=== PATIENT | female | born 1950 | race Caucasian/White ===

== ENCOUNTER 2021-10-07 09:54 | Outpatient (CLI) | payer OTHER, SELFPAY | END 2021-10-07 09:55 | disposition home or self-care (01) | LOC: ANHAUDIO 09:55 | PROVIDERS: PCP Family Medicine; Visit Provider Family Medicine | DX: H93.12 Tinnitus, left ear (principal) | CPT/HCPCS: 92557; 92567 ==

== ENCOUNTER 2021-10-08 14:40 | Outpatient (CLI) | payer OTHER, SELFPAY ==
--- NOTE | ~2021-10-08 | MM_ITS ---
EXAMINATION: MM screening lisa BI w blake HISTORY: Screening mammogram TECHNIQUE: Craniocaudal and mediolateral oblique 3-D tomosynthesis images were obtained and synthetic 2-D images were generated. CAD analysis was submitted and interpreted. COMPARISON: No prior mammogram is available for comparison at this institution. BREAST PARENCHYMAL COMPOSITION: The breasts are almost entirely fatty. FINDINGS: There is no evidence of suspicious mass, calcification, or architectural distortion to sugg est malignancy in either breast. There has been no suspicious interval change. IMPRESSION: 1. No mammographic evidence of malignancy. 2. Recommend routine screening mammography in one year. BI-RADS Category 1: Negative Reviewed, dictated and finalized at location A.
--- NOTE | ~2021-10-08 | DEXA_ITS ---
Bone Density Report Name: JP PEARL Age: 70 Sex: Female Ethnicity: White Date of : 1950 Indication: postmenopausal; screening for osteoporosis; height loss; prior fracture; hysterectomy; Referring Provider: CARLA BEASLEY Study: Bone densitometry was performed. Exam Date: October 08, 2021 Accession number: [id number] Bone Density: Region BMD T-score Z-score Classification AP Spine(L1-L4) 1.079 0.3 2.4 Normal Femoral Neck (Left) 0.723 -1.1 0.7 Osteopenia Total Hip (Left) 0.893 -0.4 1.1 Normal Femoral Neck (Right) 0.775 -0.7 1.1 Normal Total Hip (Right) 0.863 -0.6 0.8 Normal Total Hip Mean 0.878 -0.5 1.0 Normal World Health Organization criteria for BMD impression classify patients as: Normal (T-score at or above -1.0), Osteopenia (T-score between -1.0 and -2.5), or Osteoporosis (T-score at or below -2.5). 10-year Fracture Risk(1): Major Osteoporotic Fracture 13% Hip Fracture 1.3% Reported Risk Factors: [place] (), Neck BMD=0.723, BMI=35.0, previous fracture (1) FRAX(R) Version 3.08. Fracture probability calculated for an untreated patient. Fracture probability may be lower if the patient has received treatment. Clinical Information Provided by Patient: Has had a low trauma fracture Has used the following medications: Vitamin D Has the following medical conditions: Hysterectomy Patient maximum height was 67.5 Menopause Age: 57 No regular weight bearing exercise Drinks caffeinated beverages Onset of menses at age 13 Number of children 3 Impression: The patient has low bone mass, based on the Left Femoral Neck T-score. The patient has an estimated ten-year risk of hip fracture of 1.3% and an estimated ten-year risk of major fracture of 13%, based on the WHO FRAX algorithm. The patient has risk factors, including: previous fracture. Discussion: BONE DENSITY IS LOW AT ONE OR MORE SKELETAL SITES. This patient's lowest T-score is low at one or more skeletal sites. It meets the World Health Organization's (WHO) criteria for ?low bone mass? (T-score between -1.0 and -2.5). The patient's 10-year risk of fracture as calculated by FRAX is less than the threshold where pharmacological therapy is recommended by the National Osteoporosis Foundation (NOF). However, all treatment decisions require clinical judgment and consideration of individual patient factors, including patient preferences, comorbidities, previous drug use, risk factors not captured in the FRAX model (e.g., frailty, falls, vitamin D deficiency, increased bone turnover, interval significant decline in bone density) and possible under or overestimation of fracture risk by FRAX. The patient should follow a healthful lifestyle (good nutrition with adequate calcium and vitamin D, and appropriate weight-bearin
== END 2021-10-08 14:41 | disposition home or self-care (01) ==
LOC: ANHIMG 14:44
PROVIDERS: PCP Family Medicine; Visit Provider Family Medicine
DX: Z12.31 Encounter for screening mammogram for malignant neoplasm of breast (principal); Z78.0 Asymptomatic menopausal state; R93.7 Abnormal findings on diagnostic imaging of other parts of musculoskeletal system; M85.852 Other specified disorders of bone density and structure, left thigh
CPT/HCPCS: 77063; 77067; 77080

== ENCOUNTER 2023-01-15 15:35 | Outpatient (CLI) | payer OTHER, SELFPAY ==
--- NOTE | ~2023-01-15 | MR_ITS ---
EXAMINATION: MR lower leg LT wo con DATE: 01/15/2023 16:42 INDICATION: Chronic worsening medial left calf swelling. TECHNIQUE: Magnetic resonance imaging (MRI) of the left lower leg was performed without intravenous c ontrast. Sequences included axial, sagittal and coronal T1-weighted FSE and fluid sensitive FSE STIR. The contralateral right lower leg is included on the coronal images. COMPARISON: None. FINDINGS: There is normal bone marrow signal throughout with no reactive edema, fracture or pathologic marrow r eplacing process. Normal and symmetric muscle bulk and signal in the bilateral lower legs. No abnorma l masses or fluid collections identified. Subcutaneous edema at the bilateral calves. IMPRESSION: 1. Relatively symmetric minimal subcutaneous edema at the bilateral calves. Otherwise unremarkable le ft lower leg MRI with no abnormal masses or fluid collections identified. Reviewed, dictated and finalized at location A. IMPRESSION: 1. Relatively symmetric minimal subcutaneous edema at the bilateral calves. Oth erwise unremarkable left lower leg MRI with no abnormal masses or fluid collect ions identified.
== END 2023-01-15 15:36 | disposition home or self-care (01) ==
LOC: ANHIMG 15:38
PROVIDERS: PCP Family Medicine; Visit Provider Family Medicine
DX: R22.42 Localized swelling, mass and lump, left lower limb (principal)
CPT/HCPCS: 73718

== ENCOUNTER 2023-03-04 13:17 | Outpatient (CLI) | payer OTHER, SELFPAY ==
--- NOTE | ~2023-03-04 | XR_ITS ---
EXAM: XR tibia fibula LT 2V DATE: 03/04/2023 13:45 HISTORY: Pain in medial lower leg w/MRI, edema, checking for metal . COMPARISON: None available. FINDINGS: Normal mineralization. No fracture or dislocation. No lytic or blastic lesion. Mild degene rative change in the left knee. No erosion or periosteal change. Soft tissues within normal limits. IMPRESSION: Unremarkable left tibia/fibular radiograph findings. No radiopaque foreign body. Reviewed, dictated and finalized at location K. HANDISING LEAD
== END 2023-03-04 13:18 | disposition home or self-care (01) ==
PROVIDERS: PCP Family Medicine; Visit Provider Family Medicine
DX: M79.662 Pain in left lower leg (principal)
CPT/HCPCS: 73590

== ENCOUNTER 2023-04-28 09:29 | Outpatient (CLI) | payer OTHER, SELFPAY ==
--- NOTE | ~2023-04-28 | MM_ITS ---
EXAMINATION: MM screening lisa BI w blake HISTORY: Screening mammogram TECHNIQUE: Craniocaudal and mediolateral oblique 3-D tomosynthesis images were obtained and synthetic 2-D images were generated. CAD analysis was submitted and interpreted. COMPARISON: 10/08/2021 BREAST PARENCHYMAL COMPOSITION: There are scattered areas of fibroglandular density. FINDINGS: No suspicious mass, calcification, or architectural distortion are identified in either cailin ast to suggest malignancy. There has been no suspicious interval change. IMPRESSION: 1. No mammographic evidence of malignancy. 2. Recommend routine screening mammography in one year. BI-RADS Category 1: Negative Reviewed, dictated and finalized at location A. 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
== END 2023-04-28 09:30 | disposition home or self-care (01) ==
LOC: ANHIMG 09:30
PROVIDERS: PCP Family Medicine; Visit Provider Family Medicine
DX: Z12.31 Encounter for screening mammogram for malignant neoplasm of breast (principal)
CPT/HCPCS: 77063; 77067

== ENCOUNTER 2024-04-03 08:12 | Outpatient (CLI) | payer OTHER, SELFPAY ==
--- NOTE | ~2024-04-03 | XR_ITS ---
EXAMINATION: XR lumbar spine 6V w bending DATE: 04/03/2024 08:37 INDICATION: TECHNIQUE: Anteroposterior, lateral in neutral, flexion and extension, and bilateral oblique views of the lumbar spine and cone-down AP and lateral views of the lumbosacral junction were obtained. COMPARISON: None. FINDINGS: There are hypoplastic riblets at what for purposes of this report will be designated T12. There are 5 more caudal nonrib-bearing lumbar segments with L5. Partially sacralized on the left. 6 degrees lumb ar levocurvature. 4 mm anterolisthesis L4 on L5 which remains unchanged with flexion and extension. V ertebral body heights are normal. Mild to moderate disc height loss at L4-L5 and mild disc height los s at L1-L2, L2 on L3 and L5-S1. No pars interarticularis defects. Severe facet osteoarthritis bilater ally at L4-L5 and L5-S1 and mild to moderate facet osteoarthritis and more cephalad lumbar spine. Mil d osteoarthritis at the bilateral sacroiliac joints. IMPRESSION: 1. Mild to moderate lower lumbar predominant spondylosis. Reviewed, dictated and finalized at location B. 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
--- OUTSIDE RECORDS SUMMARY | 2024-04-06 11:50 | XMS_ITS | Continuity of Care Document ---
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 Name Role Phone Mayco Long MD Unavailable Unavailable Allergies, Adverse Reactions, Alerts Substance Reaction Status Criticality No Known Allergies Active No Inform ation Medications Medication Instructions Dosage Effective Dates (start - stop) Status Comments Percocet 5 mg-325 mg tablet take 1 - 2 by oral route every 4 - 6 hours as needed 1-2 - Active Alex 7.5 mg-325 mg tablet take 1 - 2 Tablet by oral route every 4 - 6 hours as needed for pain 1-2 Tablet - Active Procedures Procedure Date Office/outpatient visit,karime almaraz 2018 Office/outpatient visit,est low 2017 Global/Postop followup visit Global/Postop followup visit X-ray exam humerus, minimum 2 views Global/Postop followup visit ORIF Prox Humerus Fx Office/outpatient visit,new, mod 2017 Dieter Sling With Waist Strap, Off The She lf Advance Directives Directive Yes / No Effective Date File Name No Information Encounters Encounter Description Practice Location Reason(s) For Visit Diagnoses Date Provider Providers Copied on Encounter Office/outpat ient visit,est, low [facility], [address], [place], [place], [id number], [place] tel:[phone] [facility] Right humerus (chief complaint) Displaced fracture of surgical neck of right humerus, sequela 0 9 Mercedes Mao. [address] [facility], [address] [facility], [place], [place], [id number] , [place]. tel:[phone] Referring Provider: Mayco Francisco, [address] [facility] [address], [place], [address] . tel:[phone] Office/outpat ient visit,est, low [facility], [address] [address], [place], [place], [id number], [place] tel:[phone] [facility] Right humerus (chief complaint) Displaced fracture of surgical neck of right humerus, sequela 8 Mercedes Mao. [address] [facility], [facility] [address], [place], [place], [id number] , [place]. tel:[phone] Referring Provider: Mayco Francisco, [address] [facility] [address] [facility], [place], [address] . tel:[phone] [facility], [address] [address], [place], [place], [id number], [place] tel:[phone] [facility] No Information 8 Mercedes Mao. [address] [facility], [facility] [address], [place], [place], [id number] , [place]. tel:[phone] [facility], [address] [address], [place], [place], [id number], [place] tel:[phone] [facility] Right humerus (chief complaint) Displaced fracture of surgical neck of right humerus, sequela 8 Mercedes Mao. [address] [facility], [facility] [address], [place], [place], [id number] , [place]. tel:[phone] [facility], [address], [id number], [place] tel:[phone] [facility] Right humerus (chief complaint) Displaced fracture of surgical neck of right humerus, initial encounter for closed fracture 8 Mercedes Mao. [address] [facility], [address], [place], [place], [id number] , [place]. tel:[phone] [facility], [address], [place], [place], [id number], [place] tel:[phone] [facility] [employer] [facility] Right humerus (chief complaint) Displaced fracture of surgical neck of right humerus, initial encounter for closed fracture 8 Mercedes Mao. [address] [facility], [address], [place], [place], [id number] , [place]. tel:[phone] Referring Provider: Mayco Francisco, [address] [facility] [address], [place], [address] . tel:[phone] [facility], [address] [address], [place], [place], [id number], [place] tel:[phone] [facility] No Information 8 Mercedesalex Mao. [address] [facility], [address], [place], [place], [id number] , [place]. tel:[phone] Referring Provider: Mayco Francisco, [address] [facility] [address], [place], [address] . tel:[phone] Office/outpat ient visit,new, [facility], [address] [address], [place], [place], [id number], [place] tel:[phone] [facility] Broken Shoulder (chief complaint) Displaced fracture of surgical neck of right humerus, initial encounter for closed fracture 8 Mercedesalex Mao. [address] [facility], [address], [place], [place], [id number] , [place]. tel:[phone] Referring Provider: Mayco Francisco, [address] [facility] [address], [place], [address] . tel:[phone] Family History Family Member Type Diagnosis Age At Onset Mother Problem (finding) Cancer, unknown Father Problem (finding) Heart Disease Payers Payer name Insurance type Covered alliance party ID Junior almaraz(s) Medicare [place] W[place] Part B [id number] [facility] [id number] Social History Type Description Quantity Date Captured Comments Alcohol Use Details Unknown Caffeine Use Details Unknown Tobacco Use Status Ex-smoker Smoking Status Former smoker Non-Smoking Tobacco Use Details : No Details Available : No Details Available Sex Female Vital Signs Date / Time: Height Weight BMI Pulse Rate Blood Pressure Temperature Respiratory Rate Body Surface Area Head Circumference Head Circ. Percentile Wt./Jc. Percentile BMI percentile Pulse Ox Inhaled Ox 9:39 AM 67.00 in 99.790 kg (220.00 lbs) 34.4 6 kg/m anupamaer (2) Chief Complaint And Reason For Visit From encounter dated '03/24/2018 09:40'. Right humerus (chief complaint). Description: Patient comes in today for follow up of her right humeral neck fracture Reason For Referral Reason For Referral No Information Plan Of Treatment Date Type Action Status Referral Ordered: X-ray exam humerus, minimum 2 views RT ordered Referral Ordered: CT scan Upper Extrem W/o Contrast RT shoulder Appointment date/timeframe: 10/01/2017 ordered History Of Present Illness Encounter Date Complaint History Of Prese nt Illness Right humerus Patient comes in today for follow up of her right humeral neck fracture Right humerus Patient comes in today for follow up of her right ORIF right humeral neck fracture Right humerus Patient comes in today for follow up of her ORIF right humerus fracture Right humerus Patient comes in today for follow up of her ORIF of her right humerus fracture Right humerus Patient comes in today for follow up of her ORIF right humerus fracture Broken Shoulder Patient comes in today for right humerus pain Functional Status Date Functional Assessmen t No Information Instructions Date Instruction Additional Infor mation No Information Assessments Type Assessment Date assessment Displaced fracture of surgical n titi of right humerus, sequela Patient Care Teams Name Effective Dates (start - stop) Status Members No Information
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
--- OUTSIDE RECORDS SUMMARY | 2024-04-06 11:50 | XMS_ITS | Referral Summary ---
Author Organization [facility] Address [address] [place] [address] Care Team Providers Care Bench Hand Name Role Phone Unavailable Primary Care Provider Unavailabl e Source Comments [facility],non-owned Affiliates and Associated Physician Practices is amultiple site organization consisting of ambulatory clinics and hospital sitesin [place], [place], [place] and [place]. This disclosure is being madepursuant to the Care Everywhere program and may not contain all information available regarding this patient. Last updated 17.[facility] [employer] Social History Tobacco Use Types Packs/Day Years Used Date Smoking Tobacco: Never Assessed Sex and Gender Information Value Date Recorded Sex Assigned at Not on file Gender Identity Not on file Sexual Orientation Not on file Plan of Treatment Not on file
--- OUTSIDE RECORDS SUMMARY | 2024-04-06 11:50 | XMS_ITS | Clinical Summary ---
Author Organization [facility] [employer] Address [address] [place] [address] Care Team Providers Care Puff Ironer Name Role Phone Unavailable Primary Care Provider Unavailabl e Source Comments [facility] [employer],non-owned Affiliates and Associated Physician Practices is amultiple site organization consisting of ambulatory clinics and hospital sitesin [place], [place], [place] and [place]. This disclosure is being madepursuant to the Care Everywhere program and may not contain all information available regarding this patient. Last updated 17.[facility] [employer] Social History Tobacco Use Types Packs/Day Years Used Date Smoking Tobacco: Never Assessed Sex and Gender Information Value Date Recorded Sex Assigned at Not on file Gender Identity Not on file Sexual Orientation Not on file Plan of Treatment Health Maintenance Due Date Last Done Comments BONE DENSITY TESTING 1950 COLOGUARD (AGES 45-75) - COL ON CA SCREENING 1950 COLON MONITORING 1950 COLONOSCOPY - COLON CA SCREENING 1950 CT COLONOGRAPHY - COLON CA SCREENING 1950 Colorectal Cancer Screening 1950 FIT - COLON CA SCREENING 1950 FLEX SIG - COLON CA SCREENING 1950 LIPID TESTING 1950 MAMMOGRAM 1950 HEPATITIS C SCREENING 10/13/1969 DTAP/TDAP/TD VACCINES (1 - Tdap) 10/17/1970 PNEUMOCOCCAL VACCINE 50+ (1 of 1 - PCV) 10/17/2001 ZOSTER VACCINE (1 of 2) 10/17/2001 COVID-19 VACCINE ( - 2023-2 5 season) 2023 INFLUENZA VACCINE (#1) 2023 DEPRESSION SCREENING 03/15/2024 MEDICARE AWV ? CALENDAR YEAR 2024 Respiratory Syncytial Virus (RSV) Vaccine Pt: or over 60 yrs (1 - 1-dose 75+ series) 10/17/2026 HEPATITIS B VACCINE Aged Out No longe r eligible based on patient's age to complete this topic HIB VACCINE Aged Out No longer eligi ble based on patient's age to complete this topic HPV VACCINE Aged Out No longer eligi ble based on patient's age to complete this topic MENINGOCOCCAL (Group B) VACCINE Aged Out No longer eligible based on patient's age to complete this topic MENINGOCOCCAL VACCINE Aged Out No madelin joselin eligible based on patient's age to complete this topic
--- OUTSIDE RECORDS SUMMARY | 2024-04-06 11:50 | XMS_ITS | Patient Health Summary ---
Author Organization [facility] Address [address] [place] [address] Care Team Providers Care Base Cloth Inspector Name Role Phone Unavailable Primary Care Provider Unavailabl e Note from [facility],non-owned Affiliates and Associated Physician Practices is amultiple site organization consisting of ambulatory clinics and hospital sitesin [place], [place], [place] and [place]. This disclosure is being madepursuant to the Care Everywhere program and may not contain all information available regarding this patient. Last updated 17.[facility] Social History Tobacco Use Types Packs/Day Years Used Date Smoking Tobacco: Never Assessed Sex and Gender Information Value Date Recorded Sex Assigned at Not on file Gender Identity Not on file Sexual Orientation Not on file Procedures * DERMATOPATHOLOGY(Performed 04/08/2023) Performed for Neoplasm of uncertain behavior of skin, Other disturbances of skin sensation Results * DERMATOPATHOLOGY (04/08/2023 3:33 AM DIRECTOR OF ARCHITECTURE) Case Report Dermatopathology Report ? Case: [id number] ? Authorizing Provider: ??Ninfa Cee MD ?Collected: ? 04/08/2023 03:33 AM ? Ordering Location: ? [facility] ? Received: ?04/10/2023 10:07 AM ? Pathologist: ? Jesenia Ramirez MD ? Specimen: ?Skin, left forehead ? 4 2:07 PM [facility] [[email or web address] DERMATOPATHOLOGY LABORATORY Final Diagnosis Specimen A. 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 The specimen consists of a(2) pieces of skin measuring 11x5x4, 03u65g8. The specimen is serially sectioned and a group sales representative section is submitted in cassette 1. Jar 1. 4 2:07 PM [facility] [[email or web address]] DERMATOPATHOLOGY LABORATORY Microscopic Description Specimen A. SKIN, left forehead: There are typical adipocytes with minimal fibrous trabeculae. 4 2:07 PM [facility] [[email or web address]] DERMATOPATHOLOGY LABORATORY Disclaimer An external and internal positive and negative controls are appropriate for the histochemical, immunohistochemical and immunofluorescence stain(s) in this case (if any), except where stated explicitly. The performance characteristics of the stain(s) cited in this report were developed and its performance characteristic determined by the Dermatopathology Laboratory at [facility], directed by Dr. Eric Pelaez. These tests need not be, and therefore are not, approved by the [place] Food and Drug Administration. The tests are used for clinical purposes. Billing Codes Specimen Charges Stain Charges 33721 1 4 2:07 PM [facility] [[email or web address]] DERMATOPATHOLOGY LABORATORY Embedded Images 4 2:07 PM [facility] [[email or web address]] DERMATOPATHOLOGY LABORATORY Pathology/Cytolo gy TISSUE SPECIMEN FROM SKIN / Unknown 04/08/2023 3:33 AM DIRECTOR OF ARCHITECTURE 04/10/2023 10:07 AM DIRECTOR OF ARCHITECTURE Ninfa Cee MD LAB - PATHOLOGY/CYTO LOGY ORDERABLES DERMATOPATHOLOGY LABORATORY [facility] - Department of Dermatology [facility] [address] [place] [address], [address] [phone]
--- OUTSIDE RECORDS SUMMARY | 2024-04-06 11:50 | XMS_ITS | Encounter Summary ---
Author Organization [facility] Address [address] [place] [address] Care Team Providers Care Software Program Manager Name Role Phone Unavailable Primary Care Provider Unavailabl e Encounter Details Date Type Department Care Team (Late st Contact Info) Description 04/08/2023 Lab Requisition [facility] - [facility] [address] [place] [address] Ninfa Cee MD [address] [place] [address] [place] [id number] Neoplasm of uncertain behavior of skin; Other disturbances of skin sensation Social History Tobacco Use Types Packs/Day Years Used Date Smoking Tobacco: Never Assessed Sex and Gender Information Value Date Recorded Sex Assigned at Not on file Gender Identity Not on file Sexual Orientation Not on file documented as of this encounter Plan of Treatment Not on file documented as of this encounter Procedures Procedure Name Priority Date/Time Associated Diagnosis Comments DERMATOPATHOLOGY Routine 04/08/2023 3:33 AM [employer] WORK[employer] Neoplasm of uncertain behavior of skin Other disturbances of skin sensation documented in this encounter Results * DERMATOPATHOLOGY (04/08/2023 3:33 AM RESEARCH WORK[employer]) Case Report Dermatopathology Report ? Case: [id number] ? Authorizing Provider: ??Ninfa Cee MD ?Collected: ? 04/08/2023 03:33 AM ? Ordering Location: ? [facility] ? Received: ?04/10/2023 10:07 AM ? Pathologist: ? Jesenia Ramirez MD ? Specimen: ?Skin, left forehead ? 4 2:07 PM [facility] DERMATOPATHOLOGY LABORATORY Final Diagnosis Specimen A. 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 The specimen consists of a(2) pieces of skin measuring 11x5x4, 33h44h3. The specimen is serially sectioned and a public health representative section is submitted in cassette 1. Jar 1. 4 2:07 PM [facility] DERMATOPATHOLOGY LABORATORY Microscopic Description Specimen A. SKIN, left forehead: There are typical adipocytes with minimal fibrous trabeculae. 4 2:07 PM [facility] DERMATOPATHOLOGY LABORATORY Disclaimer An external and internal positive and negative controls are appropriate for the histochemical, immunohistochemical and immunofluorescence stain(s) in this case (if any), except where stated explicitly. The performance characteristics of the stain(s) cited in this report were developed and its performance characteristic determined by the Dermatopathology Laboratory at [facility], directed by Dr. Eric Pelaez. These tests need not be, and therefore are not, approved by the [place] Food and Drug Administration. The tests are used for clinical purposes. Billing Codes Specimen Charges Stain Charges 35713 1 4 2:07 PM [employer] DERMATOPATHOLOGY LABORATORY Embedded Images 4 2:07 PM [employer] DERMATOPATHOLOGY LABORATORY Pathology/Cytolo gy TISSUE SPECIMEN FROM SKIN / Unknown 04/08/2023 3:33 AM RESEARCH WORKER KITCHEN 04/10/2023 10:07 AM [employer] WORK[employer] Ninfa Cee MD LAB - PATHOLOGY/CYTO LOGY ORDERABLES DERMATOPATHOLOGY LABORATORY [facility] - Department of Dermatology [facility] Medicine [address] [place] [address], [address] [phone] documented in this encounter Visit Diagnoses Diagnosis Neoplasm of uncertain behavior of skin Other disturbances of skin sensation documented in this encounter
--- OUTSIDE RECORDS SUMMARY | 2024-04-06 11:51 | XMS_ITS | Referral Summary ---
Author Organization [facility] [place] Address [address] [place] [address] Care Team Providers Care Generalist Name Role Phone Moe Morales NP, Neville Zurita Unavailable [phone] April Ramirez PT Unavailable Unavailable Edwar Madrid OT Unavailable Unavailable Ashlee Hand INSURANCE HEALTHCARE CONSULTANT Unavailable Unavaila Mayco Giles MD Unavailable [phone] Unknown, Notinfile Primary Care Provider Unavail able Allergies No known active allergies Medications cholecalciferol (VITAMIN D-3) 5,000 unit tablet Take 5,000 Units by mouth daily. Active clindamycin (CLEOCIN) 300 mg capsule Take 1 capsule (300 mg total) by mouth 4 (four) times a day 40 capsule 1 Active traZODone (DESYREL) 50 mg tablet Take 100 mg by mouth nightly 1 Active chlorthalidone 25 mg tablet Take 25 mg by mouth daily as needed (swelling) 1 Active famotidine (PEPCID) 20 mg tablet Take 20 mg by mouth 2 (two) times a day as needed for indigestion or heartburn Active HYDROcodone-jarret taminophen (NORCO) 5-325 mg per tabletIndicatio ns:Pain Take 1-2 tablets by mouth every 8 (eight) hours as needed for pain 12 tablet 1 Active fluvoxaMINE (LUVOX) 100 mg tabletIndicatio ns:COVID-19 Take 1 tablet (100 mg total) by mouth 2 (two) times a day for 10 days 20 tablet 1 Active Active Problems Problem Noted Date Diagnosed Date Abscess of left upper extremity 10/24/2020 Abnormal kidney function 10/22/2020 Adenomatous polyp of colon 10/22/2020 Class 1 obesity without seri ous comorbidity with body mass index (BMI) of 33.0 to 33.9 in adult 10/22/2020 Assessment & Plan (10/23/2020 3:07 PM CDT): Weight loss encouraged; continue to provide education and ongoing support. Encounter for long-term (current) use of other m edications 10/22/2020 Medicare annual wellness visit, subsequent 10/22 Hx of pulmonary embolus 10/22/2020 Pure hypercholesterolemia 10/22/2020 MRSA infection 10/22/2020 Assessment & Plan (10/23/2020 3:09 PM CDT): ER charts reviewed; abx is appropriate. Patient is currently afebrile and reports the erythema is improving. The abscess is open and draining. Will send patient for labs; CBC and CMP. Arranged for patient to see general surgery on . Further plans pending review of results; outpatient vs inpatient management. Patient verbalized understanding to this plan. Body mass index (BMI) 31.0-31.9, adult 0 VTE (venous thromboembolism) 04/14/2018 Assessment & Plan (04/14/2018 2:50 PM BUSINESS BANKER): Gradually improving. Echocardiogram from 11/2017 is very reassuring IVC filter has been removed Recs: 1) Ok to stop anticoagulation -- risk of recurrence off anticoagulation in the setting of provoked PE discussed with patient. 2) Gradually increase aerobic exercise Aftercare following surgery 11/12/2017 Elevated troponin 10/06/2017 Acute respiratory failure 10/06/2017 Acute saddle pulmonary embolism with acute cor p ulmonale 10/06/2017 Assessment & Plan (12/01/2017 2:43 PM CDT): Gradually improving. Recs: 1) Continue eliquis 5 mg BID 2) Check echocardiogram in Mar 2018 3) If the echo is ok, will likely discontinue anticoagulation 4) Remove IVC filter around 2017 5) Gradually increase aerobic exercise Sweating increase 10/05/2017 Atypical chest pain 11/06/2015 Secondary hypertension 11/06/2015 Immunizations Name Administration Dates Next Due Influenza, Unspecified 12/14/2019,12/13/2018 Pneumococcal Conjugate PCV 13 12/13/2016 Social History Tobacco Use Types Packs/Day Years Used Date Smoking Tobacco: Former Cigarettes Q uit: 1982 Smokeless Tobacco: Never Alcohol Use Standard Drinks/Week Comments No 0 (1 standard drink = 0.6 oz pur e alcohol) AUDIT-C Answer Date Recorded Q1: How often do you have a drink containing alc ohol? Never 10/25/2020 Average Number of Drinks Not on file 021 Frequency of Binge Drinking Not on file 10/13 PHQ-2 Answer Date Recorded PHQ-2 Total Score (If total score is 3 or more points, staff should administer the PHQ-9) 2 10/22/2020 Comments No Sex and Gender Information Value Date Recorded Sex Assigned at Not on file Legal Sex Female 3:12 PM CDT Gender Identity Female 08/28/2018 10:28 AM CDT Sexual Orientation Not on file Last Filed Vital Signs Vital Sign Reading Time Taken Comments Blood Pressure 155/90 12/13/2020 9:44 AM CDT Pulse 86 12/13/2020 9:44 AM CDT Temperature 36.4 ??C (97.5 ??F) 12/13/2020 9:44 AM CD T Respiratory Rate 18 12/13/2020 9:44 AM CDT Oxygen Saturation 95% 12/13/2020 9:44 AM CDT Inhaled Oxygen Concentration - - Weight 95.3 kg (210 lb) 12/13/2020 9:44 AM CDT Height 172.7 cm (5' 8 ) 12/02/2020 1:54 PM CDT Body Mass Index 31.93 12/02/2020 1:54 PM CDT Plan of Treatment Not on file Medical Devices Implanted Type Area Mining Manager Device Identifier Shelf Expiration Date Model / Serial / Lot Price [employer] Pc-[id number] Tiara-Guard 4x4cm Patch Cardiovascular Bovine Pericardial - [id number] - [id number] Implanted:Qty: 1 on 10/06/2017 by Kelby Moore MD at [facility] 09/28/2021 PC-0404N / [id number] / [id number] Description:Tiara- Guard [employer] Ar-7213 Fiberwire 38in 48mm Braid Ties Multistrand Lower Knot Profile 5 - [id number] Implanted:Qty: 2 on 10/05/2017 by Mayco Long MD at [facility] Right: Humerus [employer] 11/12/2021 AR-7213 / / [id number] Screw Bone 3.5mm 30mm Sutureplate Ti Loprfl Shldr Terrence - [id number] Implanted:Qty: 1 on 10/05/2017 by Mayco Long MD at [facility] Right: Humerus [employer] AR-17004P L / / [employer] Ar-[id number] 3.5mm 28mm Shoulder Cortical Screw Bone Titanium Sutureplate - [id number] Implanted:Qty: 1 on 10/05/2017 by Mayco Long MD at [facility] Right: Humerus [employer] AR-90139P L / / [id number] Screw Bone Sutureplate Titanium Low Profile L38 Mm Od4 Mm Shoulder Cancellous Lock Arthroplasty - [id number] Implanted:Qty: 2 on 10/05/2017 by Mayco Long MD at [facility] Right: Humerus [employer] AR-15149 / / [id number] 3 [employer] Ar-57347 Sutureplate 4mm 34mm Lock Shoulder Cancellous Low Profile Screw - [id number] Implanted:Qty: 1 on 10/05/2017 by Mayco Long MD at [facility] Right: Humerus [employer] AR-82558 / / [id number] 3 [employer] Ar-18002 Sutureplate 3.5mm 26mm Lock Shoulder Cortical Low Profile Screw - [id number] Implanted:Qty: 1 on 10/05/2017 by Mayco Long MD at [facility] Right: Humerus [employer] AR-71702 / / [id number] [employer] Ar-05521 Sutureplate 5 Hole Humerus Plate Bone Sterile - [id number] Implanted:Qty: 1 on 10/05/2017 by Mayco Long MD at [facility] Right: Humerus [employer] AR-43036 / / [id number] Screw Bone 3.5mm 30mm Sutureplate Ti Loprfl Shldr Terrence - [id number] Implanted:Qty: 1 on 10/05/2017 by Mayco Long MD at [facility] Right: Humerus [employer] AR-92200A L / / [employer] Ar-29653 4mm 40mm Lock Shoulder Cancellous Screw Bone Titanium Sutureplate - [id number] Implanted:Qty: 1 on 10/05/2017 by Mayco Long MD at [facility] Right: Humerus [employer] AR-16511 / / [id number] 3 [employer] Ar-49381 4mm 44mm Lock Shoulder Cancellous Screw Bone Titanium Sutureplate - [id number] Implanted:Qty: 1 on 10/05/2017 by Mayco Long MD at [facility] Right: Humerus [employer] AR-23245 / / [id number] 3 [employer] Ar-14925 Sutureplate 4mm 36mm Lock Shoulder Cancellous Low Profile Screw - [id number] Implanted:Qty: 1 on 10/05/2017 by Mayco Long MD at [facility] Right: Humerus [employer] AR-54988 / / [id number] Screw Bone Sutureplate Titanium Low Profile L38 Mm Od4 Mm Shoulder Cancellous Lock Arthroplasty - [id number] Implanted:Qty: 1 on 10/05/2017 by Mayco Long MD at [facility] Right: Humerus [employer] AR-52522 / / [id number] [employer] [id number] Celect Navalign Delivery Uniset Filter Embolization [place] - [id number] Implanted:Qty: 1 on 10/07/2017 by Freddy Winn MD at [facility] [employer] [id number] / / Explanted Type Area Mining Manager Device Identifier Shelf Expiration Date Model / Serial / Lot [employer] Ar-84405 Tali Sutureplate 1.6mm 15cm Wire Fixation Nonsterile - [id number] Explanted:Qty: 2 on 10/05/2017 at [facility] Right: Humerus [employer] AR-43120 / / Wire Fxatn 15cm 1.6mm Sutureplate Ball Nonstrl - [id number] Explanted:Qty: 1 on 10/05/2017 at [facility] Right: Humerus [employer] AR-29804V / / Insurance MEDICARE [facility] MEDICARE AAR Advance Directives For more information, please contact: [phone] * Full Code (Latest Code Status on File) Date Activated Date Inactivated Comments 10/11/2017 5:34 PM 10/22/2017 1:56 PM * Full Code Date Activated Date Inactivated Comments 10/06/2017 4:42 PM 10/11/2017 4:33 PM * Full Code Date Activated Date Inactivated Comments 10/05/2017 9:53 PM 10/06/2017 4:42 PM Care Teams Generalist Relationship Specialty Start Date End Date Unknown, Notinfile PCP - General 08/01/21 Neville Rosa Jr., CHILD WELFARE CASEWORKER [address] [place] [address] Nurse Practitioner Nurse Practitioner 10/25/17 April Ramirez, PT Physical Therapist Physical Therapy 10/26/17 Edwar Madrid, OT Occupational Therapist Occupational Therapy 10/26/17 Ashlee Hand, INSURANCE HEALTHCARE CONSULTANT Physical Therapist Physical Therapy 10/28/17 Mayco Long MD [address] [place] [address] Consulting Physician Orthopedic Surgery 11/04/17
--- OUTSIDE RECORDS SUMMARY | 2024-04-06 11:51 | XMS_ITS | Clinical Summary ---
Author Organization [facility] [place] Address [address] [place] [address] Care Team Providers Care Sports Medicine Trainer Name Role Phone Moe Morales NP, Neville Zurita Unavailable [phone] April Ramirez PT Unavailable Unavailable Edwar Madrid OT Unavailable Unavailable Ashlee Hand VEST BACKER Unavailable Unavaila Mayco Giles MD Unavailable Unknown, Notinfile Primary Care Provider Unavail able [...] 04/14/2018 Assessment & Plan (04/14/2018 2:50 PM SOFTWARE RELEASE MANAGER): Gradually improving. Echocardiogram from 11/2017 is very [...] Unspecified 12/14/2019,12/13/2018 Pneumococcal Conjugate PCV 13 12/13/2016 Surgical History Surgery Date Site/Laterality Comments HYSTERECTOMY BLADDER SUSPENSION TUBAL LIGATION BARTHOLIN GLAND CYST EXCISION TONSILLECTOMY PULMONARY EMBOLISM SURGERY 10/06/2017 Bilateral Pulmonary embolectomy ORIF HUMERAL CONDYLE FRACTURE 10/05/2017 Right COLONOSCOPY W/ POLYPECTOMY 08/13/2020 - 09/11/2020 benign PATENT FORAMEN OVALE CLOSURE 10/06/2017 Removal of clot in transit VENA CAVA FILTER PLACEMENT 10/07/2017 IVC FILTER RETRIEVAL 01/25/2018 Medical History Medical History Date Comments MRSA infection Hypertension resolved after w eight loss Proximal humerus fracture Right Acute saddle pulmonary embol ism with acute cor pulmonale (HCC) 10/06/2017 GERD (gastroesophageal reflux disease) with spicy foods - takes Famotidine prn Intracardiac thrombus 10/06/2017 Cardiogenic shock (HCC) 10/06/2017 Cardiac arrest (HCC) 10/06/2017 Family History Medical History Relation Name Comments Heart disease Father Cancer Mother Cancer Paternal Grandmother Relation Name Status Comments Father Maternal Grandmother Mother Paternal Grandmother Social History Tobacco Use Types Packs/Day Years [...] AM CDT Sexual Orientation Not on file Obstetrics History Last Filed Vital Signs Vital Sign Reading [...] on file Medical Devices Implanted Type Area Body Art Technician Device Identifier Shelf Expiration Date Model / Serial / Lot [employer]c-0404n Tiara-Guard 4x4cm Patch Cardiovascular Bovine Pericardial - [id number] - [id number] Implanted:Qty: 1 on 10/06/2017 by Kelby Moore MD at [facility] [employer] 09/28/2021 PC-0404N / [id number] / [id number] Description:Tiara- Guard [employer] Ar-7213 Fiberwire 38in 48mm Braid Ties Multistrand Lower Knot Profile 5 - [id number] Implanted:Qty: 2 on 10/05/2017 by Mayco Long MD at [facility] Right: Humerus [employer] 11/12/2021 AR-7213 / / [id number] Screw Bone 3.5mm 30mm Sutureplate Ti Loprfl Shldr Terrence - [id number] Implanted:Qty: 1 on 10/05/2017 by Mayco Long MD at [facility] Right: Humerus [employer] AR-29631N L / / [employer] Ar-16091tw 3.5mm 28mm Shoulder Cortical Screw Bone Titanium Sutureplate - [id number] Implanted:Qty: 1 on 10/05/2017 by Mayco Long MD at [facility] Right: Humerus [employer] AR-28628D L / / [id number] Screw Bone Sutureplate Titanium Low Profile L38 Mm Od4 Mm Shoulder Cancellous Lock Arthroplasty - [id number] Implanted:Qty: 2 on 10/05/2017 by Mayco Long MD at [facility] Right: Humerus [employer] AR-65491 / / [id number] [employer] Ar-87401 Sutureplate 4mm 34mm Lock Shoulder Cancellous Low Profile Screw - [id number] Implanted:Qty: 1 on 10/05/2017 by Mayco Long MD at [facility] Right: Humerus [employer] AR-08169 / / [id number] 3 [employer] Ar-74038 Sutureplate 3.5mm 26mm Lock Shoulder Cortical Low Profile Screw - [id number] Implanted:Qty: 1 on 10/05/2017 by Mayco Long MD at [facility] Right: Humerus [employer] AR-46073 / / [id number] [employer] Ar-32331 Sutureplate 5 Hole Humerus Plate Bone Sterile - [id number] Implanted:Qty: 1 on 10/05/2017 by Mayco Long MD at [facility] Right: Humerus [employer] AR-42246 / / [id number] Screw Bone 3.5mm 30mm Sutureplate Ti Loprfl Shldr Terrence - [id number] Implanted:Qty: 1 on 10/05/2017 by Mayco Long MD at [facility] Right: Humerus [employer] AR-45648U L / / [employer] Ar-73411 4mm 40mm Lock Shoulder Cancellous Screw Bone Titanium Sutureplate - [id number] Implanted:Qty: 1 on 10/05/2017 by Mayco Long MD at [facility] Right: Humerus [employer] AR-23734 / / [id number] 3 [employer] Ar-26126 4mm 44mm Lock Shoulder Cancellous Screw Bone Titanium Sutureplate - [id number] Implanted:Qty: 1 on 10/05/2017 by Mayco Long MD at [facility] Right: Humerus [employer] AR-18526 / / [id number] [employer] Ar-18858 Sutureplate 4mm 36mm Lock Shoulder Cancellous Low Profile Screw - [id number] Implanted:Qty: 1 on 10/05/2017 by Mayco Long MD at [facility] Right: Humerus [employer] AR-63504 / / [id number] Screw Bone Sutureplate Titanium Low Profile L38 Mm Od4 Mm Shoulder Cancellous Lock Arthroplasty - [id number] Implanted:Qty: 1 on 10/05/2017 by Mayco Long MD at [facility] Right: Humerus [employer] AR-99494 / / [id number] [employer] [id number] Celect Navalign Delivery Uniset Filter Embolization [place] - [id number] Implanted:Qty: 1 on 10/07/2017 by Freddy Winn MD at [facility] [employer] [id number] / / Explanted Type Area Body Art Technician Device Identifier Shelf Expiration Date Model / Serial / Lot [employer] Inc Ar-33129 Tali Sutureplate 1.6mm 15cm Wire Fixation Nonsterile - [id number] Explanted:Qty: 2 on 10/05/2017 at [facility] Right: Humerus [employer] AR-10746 / / Wire Fxatn 15cm 1.6mm Sutureplate Ball Nonstrl - [id number] Explanted:Qty: 1 on 10/05/2017 at [facility] Right: Humerus [employer] AR-[id number] / / Insurance MEDICARE [facility] MEDICARE [facility] Advance Directives For more information, please contact: [phone] * Full Code (Latest Code Status on File) Date Activated Date Inactivated Comments 10/11/2017 5:34 PM 10/22/2017 1:56 PM * Full Code Date Activated Date Inactivated Comments 10/06/2017 4:42 PM 10/11/2017 4:33 PM * Full Code Date Activated Date Inactivated Comments 10/05/2017 9:53 PM 10/06/2017 4:42 PM Care Teams Sports Medicine Trainer Relationship Specialty Start Date End Date Unknown, Notinfile PCP - General 08/01/21 Neville Rosa Jr., CHICKEN BUYER [address] [place] [address] Nurse Practitioner Nurse Practitioner 10/25/17 April Ramirez, PT Physical Therapist Physical Therapy 10/26/17 Edwar Madrid, OT Occupational Therapist Occupational Therapy 10/26/17 Ashlee Hand, VEST BACKER Physical Therapist Physical Therapy 10/28/17 Mayco Long MD [address] [place] [address] Consulting Physician Orthopedic Surgery 11/04/17
== END 2024-04-03 08:13 | disposition home or self-care (01) ==
LOC: ANHIMG 08:16
PROVIDERS: PCP Family Medicine; Visit Provider Family Medicine
DX: M47.816 Spondylosis without myelopathy or radiculopathy, lumbar region (principal)
CPT/HCPCS: 72114

== ENCOUNTER 2024-05-25 07:38 | Outpatient (CLI) | payer OTHER, SELFPAY ==
--- NOTE | ~2024-05-25 | MR_ITS ---
EXAMINATION: MR lumbar spine wo con DATE: 05/25/2024 08:17 INDICATION: Other spondylosis with radiculopathy, lumbosacral region. TECHNIQUE: Magnetic resonance imaging (MRI) of the lumbar spine was performed without intravenous con trast. Sequences included sagittal T2-weighted FSE, sagittal T2-weighted FS FSE, sagittal T1-weighted FSE, and axial T2-weighted FSE. COMPARISON: Lumbar spine radiographs 04/03/24 FINDINGS: There is 3 mm anterolisthesis of L4 on L5. Vertebral body heights are normal. There is mild ly decreased disc height at L1-L2, L2-L3, L3-L4, and L4-L5. The distal spinal cord signal intensity i s normal. The conus medullaris is at T12-L1. At T11-T12, there is a 2.2 x 1.2 x 3.6 cm cyst involving the right side of the central canal and the right neural foramen with scalloping of the bone and mil d central canal stenosis, likely a dilated nerve root sleeve. The following disc levels are specifica lly discussed: L1-L2: The disc is bulging and has an annular fissure. There is moderate bilateral facet joint osteoa rthritis. There is mild bilateral neural foraminal stenosis. There is mild central canal stenosis. L2-L3: The disc is bulging. There is severe bilateral facet joint osteoarthritis. There is mild bilat eral neural foraminal stenosis. There is mild central canal stenosis. L3-L4: The disc is bulging and has an annular fissure. There is severe bilateral facet joint osteoart hritis. There is mild bilateral neural foraminal stenosis. There is mild central canal stenosis. L4-L5: The disc is bulging and has an annular fissure. There is severe bilateral facet joint osteoart hritis. There is hypertrophy of the ligamentum flavum. There is moderate bilateral neural foraminal s tenosis. There is moderate central canal stenosis. L5-S1: The disc does not extend beyond the endplate margin. There is severe bilateral facet joint ost eoarthritis. There is mild bilateral neural foraminal stenosis. There is no central canal stenosis. IMPRESSION: 1. Moderate lumbar spondylosis. Reviewed, dictated and finalized at location B.
--- OUTSIDE RECORDS SUMMARY | 2024-05-25 07:46 | XMS_ITS | Patient Health Summary ---
Author Organization [facility] Address [address] [place] [address] Care Team Providers Care Instructor Robotics Name Role Phone Unavailable Primary Care Provider Unavailabl e Note from [facility],non-owned Affiliates and Associated Physician Practices is amultiple site organization consisting of ambulatory clinics and hospital sitesin [place], [place], [place] and [place]. This disclosure is being madepursuant to the Care Everywhere program and may not contain all information available regarding this patient. Last updated 17.[facility] [employer] Social History Tobacco Use Types Packs/Day Years Used Date Smoking Tobacco: Never Assessed Sex and Gender Information Value Date Recorded Sex Assigned at Not on file Gender Identity Not on file Sexual Orientation Not on file Procedures * DERMATOPATHOLOGY(Performed 04/08/2023) Performed for Neoplasm of uncertain behavior of skin, Other disturbances of skin sensation Results * DERMATOPATHOLOGY (04/08/2023 3:33 AM TRICK [facility]DE[facility]IDER) Case Report Dermatopathology Report Case: [id number] Authorizing Provider: Ninfa Cee MD Collected: 04/08/2023 03:33 AM Ordering Location: [facility] DermPath Lab Received: 04/10/2023 10:07 AM Pathologist: Jesenia Ramirez MD Specimen: Skin, left forehead 4 2:07 PM [facility] DERMATOPATHOLOGY LABORATORY Final Diagnosis Specimen A. 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 The specimen consists of a(2) pieces of skin measuring 11x5x4, [id number]. The specimen is serially sectioned and a physician representative section is submitted in cassette 1. Jar 1. 4 2:07 PM [facility] DERMATOPATHOLOGY LABORATORY Microscopic Description Specimen A. SKIN, left forehead: There are typical adipocytes with minimal fibrous trabeculae. 4 2:07 PM [facility] DERMATOPATHOLOGY LABORATORY Disclaimer An external and internal positive and negative controls are appropriate for the histochemical, immunohistochemical and immunofluorescence stain(s) in this case (if any), except where stated explicitly. The performance characteristics of the stain(s) cited in this report were developed and its performance characteristic determined by the Dermatopathology Laboratory at [facility], directed by Dr. Eric Pelaez. These tests need not be, and therefore are not, approved by the [place] Food and Drug Administration. The tests are used for clinical purposes. Billing Codes Specimen Charges Stain Charges 69480 1 4 2:07 PM [facility] DERMATOPATHOLOGY LABORATORY Embedded Images 4 2:07 PM [facility] DERMATOPATHOLOGY LABORATORY Pathology/Cytolo gy TISSUE SPECIMEN FROM SKIN / Unknown 04/08/2023 3:33 AM TRICK [facility]DEO RIDER 04/10/2023 10:07 AM TRICK RODE[facility] RIDER Ninfa Cee MD LAB - PATHOLOGY/CYTO LOGY ORDERABLES DERMATOPATHOLOGY LABORATORY [facility] - Department of Dermatology [facility] Medicine [address] [place] [address], [address] [phone]
--- OUTSIDE RECORDS SUMMARY | 2024-05-25 07:46 | XMS_ITS | Clinical Summary ---
Author Organization [facility] [employer] Address [address] [place] [address] Care Team Providers Care Ext Js Developer Name Role Phone Unavailable Primary Care Provider Unavailabl e Source Comments [facility] [employer],non-owned Affiliates and Associated Physician Practices is amultiple site organization consisting of ambulatory clinics and hospital sitesin [place], [place], [place] and [place]. This disclosure is being madepursuant to the Care Everywhere program and may not contain all information available regarding this patient. Last updated 17.[facility] [employer] Social History Tobacco Use Types Packs/Day Years [...] (#1) 2023 DEPRESSION SCREENING 03/15/2024 MEDICARE AWV CALENDAR YEAR 2024 Respiratory Syncytial Virus (RSV) [...] to complete this topic MENINGOCOCCAL (Group B) VACC INE SHARED DECISION-MAKING Aged Out No longer eligibl e based on patient's age to complete this topic MENINGOCOCCAL GROUPS A/C/Y/W VACCINE Aged Out No longer eligible b ased on patient's age to complete this topic
--- OUTSIDE RECORDS SUMMARY | 2024-05-25 07:46 | XMS_ITS | Referral Summary ---
Author Organization [facility] Address [address] [place] [address] Care Team Providers Care Powderer Name Role Phone Unavailable Primary Care Provider Unavailabl e Source Comments [facility],non-owned Affiliates and Associated Physician Practices is amultiple site organization consisting of ambulatory clinics and hospital sitesin [place], [place], [place] and [place]. This disclosure is being madepursuant to the Care Everywhere program and may not contain all information available regarding this patient. Last updated 17.[facility] [employer] Social History Tobacco Use Types Packs/Day Years Used Date Smoking Tobacco: Never Assessed Sex and Gender Information Value Date Recorded Sex Assigned at Not on file Gender Identity Not on file Sexual Orientation Not on file Plan of Treatment Not on file
--- OUTSIDE RECORDS SUMMARY | 2024-05-25 07:46 | XMS_ITS | Referral Summary ---
Author Organization [facility] [place] Address [address] [place] [address] Care Team Providers Care Hand Rigger Name Role Phone Moe Morales NP, Neville Zurita Unavailable [phone] April Ramirez PT Unavailable Unavailable Edwar Madrid OT Unavailable Unavailable Ashlee Hand CLEANER WINDOW Unavailable Unavaila Mayco Giles MD Unavailable Unknown, [...] 04/14/2018 Assessment & Plan (04/14/2018 2:50 PM CIVIL CAD TECH): Gradually improving. Echocardiogram from 11/2017 is very [...] chest pain 11/06/2015 Secondary hypertension 11/06/2015 Immunizations Immunization Administration Dates Next Due Influenza, Unspecified 12/14/2019,12/13/2018 [...] 86 12/13/2020 9:44 AM CDT Temperature 36.4 C (97.5 F) 12/13/2020 9:44 AM CDT Respiratory Rate 18 12/13/2020 9:44 AM CDT Oxygen Saturation 95% 12/13/2020 9:44 AM CDT Inhaled Oxygen Concentration - - Weight 95.3 kg (210 lb) 12/13/2020 9:44 AM CDT Height 172.7 cm (5' 8 ) 12/02/2020 1:54 PM CDT Body Mass Index 31.93 12/02/2020 1:54 PM CDT Plan of Treatment Not on file Medical Devices Implanted Type Area Computer Systems Engineer Device Identifier Shelf Expiration Date Model / Serial / Lot Mister Spex [id number] Tiara-Guard 4x4cm Patch Cardiovascular Bovine Pericardial - [id number] - [id number] Implanted:Qty: 1 on 10/06/2017 by Kelby Moore MD at [facility] [id number] / [id number] / [id number] Description:Tiara- Guard [employer] Ar-7213 Fiberwire 38in 48mm Braid Ties Multistrand Lower Knot Profile 5 - [id number] Implanted:Qty: 2 on 10/05/2017 by Mayco Long MD at [facility] Right: Humerus [employer] 11/12/2021 AR-7213 / / [id number] Screw Bone 3.5mm 30mm Sutureplate Ti Loprfl Shldr Terrence - [id number] Implanted:Qty: 1 on 10/05/2017 by Mayco Long MD at [facility] Right: Humerus [employer] AR-75127F L / / [employer] Ar-93876st 3.5mm 28mm Shoulder Cortical Screw Bone Titanium Sutureplate - [id number] Implanted:Qty: 1 on 10/05/2017 by Mayco Long MD at [facility] Right: Humerus [employer] AR-87235R L / / [id number] Screw Bone Sutureplate Titanium Low Profile L38 Mm Od4 Mm Shoulder Cancellous Lock Arthroplasty - [id number] Implanted:Qty: 2 on 10/05/2017 by Mayco Long MD at [facility] Right: Humerus [employer] AR-90582 / / [id number] [employer] Ar-09689 Sutureplate 4mm 34mm Lock Shoulder Cancellous Low Profile Screw - [id number] Implanted:Qty: 1 on 10/05/2017 by Mayco Long MD at [facility] Right: Humerus [employer] AR-79920 / / [id number] 3 [employer] Ar-37930 Sutureplate 3.5mm 26mm Lock Shoulder Cortical Low Profile Screw - [id number] Implanted:Qty: 1 on 10/05/2017 by Mayco Long MD at [facility] Right: Humerus [employer] AR-37377 / / [id number] [employer] Ar-02942 Sutureplate 5 Hole Humerus Plate Bone Sterile - [id number] Implanted:Qty: 1 on 10/05/2017 by Mayco Long MD at [facility] Right: Humerus [employer] AR-08460 / / [id number] Screw Bone 3.5mm 30mm Sutureplate Ti Loprfl Shldr Terrence - [id number] Implanted:Qty: 1 on 10/05/2017 by Mayco oLng MD at [facility] Right: Humerus [employer] AR-12068K L / / [employer] Ar-36966 4mm 40mm Lock Shoulder Cancellous Screw Bone Titanium Sutureplate - [id number] Implanted:Qty: 1 on 10/05/2017 by Mayco Long MD at [facility] Right: Humerus [employer] AR-07237 / / [id number] 3 [employer] Ar-56363 4mm 44mm Lock Shoulder Cancellous Screw Bone Titanium Sutureplate - [id number] Implanted:Qty: 1 on 10/05/2017 by Mayco Long MD at [facility] Right: Humerus [employer] AR-25380 / / [id number] [employer] Ar-65327 Sutureplate 4mm 36mm Lock Shoulder Cancellous Low Profile Screw - [id number] Implanted:Qty: 1 on 10/05/2017 by Mayco Long MD at [facility] Right: Humerus [employer] AR-75882 / / [id number] Screw Bone Sutureplate Titanium Low Profile L38 Mm Od4 Mm Shoulder Cancellous Lock Arthroplasty - [id number] Implanted:Qty: 1 on 10/05/2017 by Mayco Long MD at [facility] Right: Humerus [employer] AR-34558 / / [id number] [employer] [id number] Celect Navalign Delivery Uniset Filter Embolization [place] - [id number] Implanted:Qty: 1 on 10/07/2017 by Freddy Winn MD at [facility] [employer] FREEjit [id number] / / Explanted Type Area Computer Systems Engineer Device Identifier Shelf Expiration Date Model / Serial / Lot [employer] Inc Ar-88333 Tali Sutureplate 1.6mm 15cm Wire Fixation Nonsterile - [id number] Explanted:Qty: 2 on 10/05/2017 at [facility] Right: Humerus [employer] AR-67294 / / Wire Fxatn 15cm 1.6mm Sutureplate Ball Nonstrl - [id number] Explanted:Qty: 1 on 10/05/2017 at [facility] Right: Humerus [employer] AR-92546X / / Insurance MEDICARE [facility] Address: [facility] [address] [place] [address] [facility] MEDICARE AARP Advance Directives For more information, please contact: [phone] * Full Code (Latest Code Status on File) Date Activated Date Inactivated Comments 10/11/2017 5:34 PM 10/22/2017 1:56 PM * Full Code Date Activated Date Inactivated Comments 10/06/2017 4:42 PM 10/11/2017 4:33 PM * Full Code Date Activated Date Inactivated Comments 10/05/2017 9:53 PM 10/06/2017 4:42 PM Care Teams Hand Rigger Relationship Specialty Start Date End Date Unknown, Notinfile PCP - General 08/01/21 Neville Rosa Jr., ENVELOPE MACHINE OPERATOR [address] [place] [address] Nurse Practitioner Nurse Practitioner 10/25/17 Apirl Ramirez, PT Physical Therapist Physical Therapy 10/26/17 Edwar Madrid, OT Occupational Therapist Occupational Therapy 10/26/17 Ashlee Hand, CLEANER WINDOW Physical Therapist Physical Therapy 10/28/17 Mayco Long MD [address] [place] [address] Consulting Physician Orthopedic Surgery 11/04/17
--- OUTSIDE RECORDS SUMMARY | 2024-05-25 07:46 | XMS_ITS | Continuity of Care Document ---
Author Organization [facility] Address [address] [place] [address] Phone Care Team Providers Care Coal Cutting Machine Operator Name Role Phone Mayco Long MD Unavailable Unavailable Allergies, Adverse Reactions, Alerts Substance Reaction Status Criticality No Known Allergies Active No Inform ation Medications Medication Instructions Dosage Effective Dates (start - stop) Status Comments Percocet 5 mg-325 mg tablet take 1 - 2 by oral route every 4 - 6 hours as needed 1-2 - Active Cable 7.5 mg-325 mg tablet take 1 - [...] visit,est, low [facility], [address], [place], [place], [address], [place] tel:[phone] [facility] Right humerus (chief complaint) Displaced fracture of surgical neck of right humerus, sequela 0 9 Mercedes Mao. [address] [facility], [address] [facility], [place], [place], [address] , [place]. tel:[phone] Referring Provider: Mayco Francisco, [address] [facility] [address], [place], [address] . tel:[phone] Office/outpat ient visit,est, low [facility], [address] [address], [place], [place], [address], [place] tel:[phone] [facility] Right humerus (chief complaint) Displaced fracture of surgical neck of right humerus, sequela 8 Mercedes Mao. [address] [facility], [facility] [address], [place], [place], [address] , [place]. tel:[phone] Referring Provider: Mayco Francisco, [address] [facility] [address] [facility], [place], [address] . tel:[phone] [facility], [address] [address], [place], [place], [address], [place] tel:[phone] [facility] No Information 8 Mercedes Mao. [address] [facility], [facility] [address], [place], [place], [address] , [place]. tel:[phone] [facility], [address] [address], [place], [place], [address], [place] tel:[phone] [facility] Right humerus (chief complaint) Displaced fracture of surgical neck of right humerus, sequela 8 Mercedes Mao. [address] [facility], [facility] [address], [place], [place], [address] , [place]. tel:[phone] [facility], [address], [id number], [place] tel:[phone] [facility] Right humerus (chief complaint) Displaced fracture of surgical neck of right humerus, initial encounter for closed fracture 8 Mercedes Mao. [address] [facility], [address], [place], [place], [address] , [place]. tel:[phone] [facility], [address], [place], [place], [address], [place] tel:[phone] [facility] Right humerus (chief complaint) Displaced fracture of surgical neck of right humerus, initial encounter for closed fracture 8 Mercedes Mao. [address] [facility], [address], [place], [place], [address] , [place]. tel:[phone] Referring Provider: Mayco Francisco, [address] [facility] [address], [place], [address] . tel:[phone] [facility], [address] [address], [place], [place], [address], [place] tel:[phone] [facility] No Information 8 Mercedesalex Mao. [address] [facility], [address], [place], [place], [address] , [place]. tel:[phone] Referring Provider: Mayco Francisco, [address] [facility] [address], [place], [address] . tel:[phone] Office/outpat ient visit,new, [facility], [address] [address], [place], [place], [address], [place] tel:[phone] [facility] Broken Shoulder (chief complaint) Displaced fracture of surgical neck of right humerus, initial encounter for closed fracture 8 Mercedesalex Mao. [address] [facility], [address], [place], [place], [address] , [place]. tel:[phone] Referring Provider: Mayco Francisco, [address] [facility] [address], [place], [address] . tel:[phone] Family History Family Member Type Diagnosis Age At Onset Mother Problem (finding) Cancer, unknown Father Problem (finding) Heart Disease Payers Payer name Insurance type Covered green party ID Junior almaraz(s) Medicare [place] WPS Part B [id number] [facility] [id number] Social History Type Description Quantity Date Captured [...]
--- OUTSIDE RECORDS SUMMARY | 2024-05-25 07:46 | XMS_ITS | Continuity of Care Document ---
Author Organization [facility] [email or web address] Address [address] [place] [address] Phone Care Team Providers Care Diamond Merchant Name Role Phone Abdulkadir Chairez MD Unavailable [...] Diagnoses Date Provider Providers Copied on Encounter [facility], [address], [place], [place], [address] , tel: [phone] [facility] No Information 3 Contreras Panchal. [address] [facility], [address], [address], [place]. tel:[phone] [facility], [address], [place], [place], [address] , [place] tel: [phone] [facility] No Information 3 Dimitroff Abdulkadir. [facility]5 [facility], [address], [address], [place]. tel:[phone] Referring Provider: Mateo Ibarra, [address] , [place], [address]. tel:[phone] [facility], [address], [place], [place], [address] , [place] tel: [phone] [facility] No Information 3 Dimitroff Abdulkadir. [address] [place] [address], [address], [address], [place]. tel:[phone] Referring Provider: Lisa Church, [address] [address], [place], [address]. tel:[phone] [facility], [address], [place], [place], [address] , [place] tel: [phone] [facility] No Information 1 Pedro Gallagher. [address], [place], [place], [address], [place]. tel:[phone] [facility], [address], [place], [place], [address] , tel: [phone] [facility] No Information 1 Pedro Gallagher. [address], [address], [place], [place], [address], [place]. tel:[phone] [facility], [address], [place], [place], [address] , tel: [phone] [facility] No Information 1 Dimitroff Abdulkadir. [address] [place] [address], [address], [id number], . tel:[phone] Referring Provider: Elliott Vasquez, [address], [place], [address]. tel:[phone] [facility], [address], [place], [place], [address] , [place] tel:[phone] [facility] No Information [place]- 1 Shady Paetl. [address] [place], [place], [facility], [place]. tel:[phone] Referring Provider: Elliott Vasquez, [address], [place], [address]. tel:[phone] [facility], [address], [place], [place], [address] , [place] tel: [phone] [facility] Abnormal kidney function Dec- 0 Pedro Gallagher. [address], [address], [place], [place], [address], [place]. tel:[phone] [facility], [address], [place], [place], [address] , [place] tel: [phone] [facility] Abnormal kidney function Sep-2 0 Pedro Gallagher. [address], [address], [place], [place], [address], [place]. tel:[phone] [facility], [address], [place], [address] , [place] tel: [phone] [facility] Reestablish care (chief complaint)Oh dicare preventive (chief complaint) Body mass index (BMI) 31.0-31.9, adultEncounte r for long-term (current) use of other medicationsAd enomatous polyp of colon, unspecified part of colonMedicare annual wellness visit, subsequentPur e hypercholeste rolemiaHx of pulmonary embolusClass 1 obesity without serious comorbidity with body mass index (BMI) of 31.0 to 31.9 in adult, unspecified obesity type 0 Pedro Gallagher. [address], [address], [place], [place], [address], [place]. tel:[phone] Referring Provider: Elliott Vasquez [address], [place], [address]. tel:[phone] [facility], [address], [place], [place], [address] , tel: [phone] [facility] acute visit (chief complaint) Acute non-recurrent frontal sinusitis 8 Pedro Gallagher. [address], [address], [place], [place], [address], . tel:[phone] Referring Provider: Elliott Vasquez, [address], [place], [address]. tel:[phone] [facility], [address], [place], [place], [address] , tel: [phone] [facility] Body mass index (BMI) 29.0-29.9, adultAdenomat ous polyp of colon, unspecified part of colonEncounte r for long-term (current) use of other medicationsSc reening for diabetes mellitusLipid screeningEnco unter for immunizationW elcome to Medicare preventive visitInfluenz a vaccine refusedSebace ous cyst 7 Pedro Gallagher. [address], [address], [place], [place], [address], . tel:[phone] Referring Provider: Elliott Vasquez, [address], [place], [address]. tel:[phone] [facility], [address], [place], [place], [address] , tel: [phone] [facility] Essential (primary) hypertension 7 Pedro Gallagher. [address], [address], [place], [place], [address], . tel:[phone] Referring Provider: Elliott Vasquez [address], [place], [address]. tel:[phone] [facility], [address], [place], [place], [address] , tel:[phone] [facility] Essential (primary) hypertension 6 Pedro Gallagher. [address], [place], [place], [address], . tel:[phone] Referring Provider: Elliott Vasquez, [address], [place], [address]. tel:[phone] [facility], [address], [place], [place], [address] , tel:[phone] [facility] Essential (primary) hypertensionC hronic fatigueColon cancer screeningPrim julius insomniaGastr oesophageal reflux disease, esophagitis presence not specifiedBrea st cancer screeningScre ening for osteoporosis 6 Pedro Gallagher. [address], [address], [place], [place], [address], . tel:[phone] Referring Provider: Elliott Vasquez, [address], [place], [address]. tel:[phone] [facility] [employer], [address], [place], [place], [address] , tel:[phone] [facility] Chronic fatigueScreen ing for lipoid disordersEsse ntial (primary) hypertensionN on morbid obesity, unspecified obesity type 0 6 Pedro Gallagher. [address], [place], [place], [address], . tel:[phone] Referring Provider: Elliott Vasquez, [address], [place], [address]. tel:[phone] Family History Family Member Type Diagnosis Age At Onset Brother Problem (finding) Father Problem (finding) Father Problem (finding) premature coronary hear t disease Brother Problem (finding) hypertension Mother Problem (finding) malignant neoplasm of l steve Mother Problem (finding) Cancer, brain Father Problem (finding) coronary arterioscleros is Immunizations Vaccine Date Status Comments Pneumococcal conjugate PCV 13 administere d Source: New Immunization Record Fluzone High-Dose 4458-7665, high dose, preservative free refused Source: New Immunization Record Influenza, injectable, quadrivalent, preservative free, 3 yrs or older refused Source: New Immuniz ation Record Td (adult) preservative free administered Note: Per pt memory.Invalid documented admin date was //2009. 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 Taking BP at home and generally [...] colon Labs ordered. Related to Pure hypercholesterolemia Counseled on dietary changes Disease process Dietary management e ducation, guidance, and counseling Related to Body mass index (BMI) 31.0-31.9, adult Counseled on weight reduction Start cefdinir 300 m g 2 caps daily for 10 days and flonase 2 sprays in each nostril daily as needed. Related to Acute non-recurrent frontal sinusitis Fall Risk Prevention Urinary Incontinence Disease process Assessments Type Assessment Date No Information Patient Care Teams Name Effective Dates (start - stop) Status Members No Information
--- OUTSIDE RECORDS SUMMARY | 2024-05-25 07:46 | XMS_ITS | Clinical Summary ---
Author Organization [facility] [place] Address [address] [place] [address] Care Team Providers Care Annual Campaign Manager Name Role Phone Moe Morales NP, Neville Zuirta Unavailable [phone] April Ramirez PT Unavailable Unavailable Edwar Madrid OT Unavailable Unavailable Ashlee Hand PATIENT ACCESS Unavailable Unavaila Mayco Giles MD Unavailable [phone] Unknown, Notinfile Primary Care Provider Unavail able [...] 04/14/2018 Assessment & Plan (04/14/2018 2:50 PM MACHINIST WOOD): Gradually improving. Echocardiogram from 11/2017 is very [...] on file Medical Devices Implanted Type Area Gauger Delivery Device Identifier Shelf Expiration Date Model / Serial / Lot [employer] [id number] Tiara-Guard 4x4cm Patch Cardiovascular Bovine Pericardial - [id number] - [id number] Implanted:Qty: 1 on 10/06/2017 by Kelby Moore MD at [facility] Graft [employer] 09/28/2021 [id number] / [id number] / [id number] Description:Tiara- Guard [employer] Ar-7213 Fiberwire 38in 48mm Braid Ties Multistrand Lower Knot Profile 5 - [id number] Implanted:Qty: 2 on 10/05/2017 by Mayco Long MD at [facility] Right: Humerus [employer] 11/12/2021 AR-7213 / / [id number] Screw Bone 3.5mm 30mm Sutureplate Ti Loprfl Shldr Terrence - [id number] Implanted:Qty: 1 on 10/05/2017 by Mayco Long MD at [facility] Right: Humerus [employer] AR-[id number] L / / [employer] [id number] 3.5mm 28mm Shoulder Cortical Screw Bone Titanium Sutureplate - [id number] Implanted:Qty: 1 on 10/05/2017 by Mayco Long MD at [facility] Right: Humerus [employer] AR-48645M L / / [id number] Screw Bone Sutureplate Titanium Low Profile L38 Mm Od4 Mm Shoulder Cancellous Lock Arthroplasty - [id number] Implanted:Qty: 2 on 10/05/2017 by Mayco Long MD at [facility] Right: Humerus [employer] AR-33691 / / [id number] 3 [employer] Ar-89468 Sutureplate 4mm 34mm Lock Shoulder Cancellous Low Profile Screw - [id number] Implanted:Qty: 1 on 10/05/2017 by Mayco Long MD at [facility] Right: Humerus [employer] AR-51119 / / [id number] 3 [employer] Ar-19122 Sutureplate 3.5mm 26mm Lock Shoulder Cortical Low Profile Screw - [id number] Implanted:Qty: 1 on 10/05/2017 by Mayco Long MD at [facility] Right: Humerus [employer] AR-17780 / / [id number] [employer] Ar-66194 Sutureplate 5 Hole Humerus Plate Bone Sterile - [id number] Implanted:Qty: 1 on 10/05/2017 by Mayco Long MD at [facility] Right: Humerus [employer] AR-32731 / / [id number] Screw Bone 3.5mm 30mm Sutureplate Ti Loprfl Shldr Terrence - [id number] Implanted:Qty: 1 on 10/05/2017 by Mayco Long MD at [facility] Right: Humerus [employer] AR-17528V L / / [employer] Ar-89695 4mm 40mm Lock Shoulder Cancellous Screw Bone Titanium Sutureplate - [id number] Implanted:Qty: 1 on 10/05/2017 by Mayco Long MD at [facility] Right: Humerus [employer] AR-19948 / / [id number] 3 [employer] Ar-38173 4mm 44mm Lock Shoulder Cancellous Screw Bone Titanium Sutureplate - [id number] Implanted:Qty: 1 on 10/05/2017 by Mayco Long MD at [facility] Right: Humerus [employer] AR-72219 / / [id number] 3 [employer] Ar-50304 Sutureplate 4mm 36mm Lock Shoulder Cancellous Low Profile Screw - [id number] Implanted:Qty: 1 on 10/05/2017 by Mayco Long MD at [facility] Right: Humerus [employer] AR-65113 / / [id number] Screw Bone Sutureplate Titanium Low Profile L38 Mm Od4 Mm Shoulder Cancellous Lock Arthroplasty - [id number] Implanted:Qty: 1 on 10/05/2017 by Mayco Long MD at [facility] Right: Humerus [employer] AR-09712 / / [id number] [employer] [id number] Celect Navalign Delivery Uniset Filter Embolization [place] - [id number] Implanted:Qty: 1 on 10/07/2017 by Freddy Winn MD at [facility] [employer] [id number] / / Explanted Type Area Gauger Delivery Device Identifier Shelf Expiration Date Model / Serial / Lot [employer] Ar-37273 Tali Sutureplate 1.6mm 15cm Wire Fixation Nonsterile - [id number] Explanted:Qty: 2 on 10/05/2017 at [facility] Right: Humerus [employer] AR-27784 / / Wire Fxatn 15cm 1.6mm Sutureplate Ball Nonstrl - [id number] Explanted:Qty: 1 on 10/05/2017 at [facility] Right: Humerus [employer] AR-[id number] / / Insurance MEDICARE [facility] MEDICARE [facility] Advance Directives For more information, please contact: [phone] * Full Code (Latest Code Status on File) Date Activated Date Inactivated Comments 10/11/2017 5:34 PM 10/22/2017 1:56 PM * Full Code Date Activated Date Inactivated Comments 10/06/2017 4:42 PM 10/11/2017 4:33 PM * Full Code Date Activated Date Inactivated Comments 10/05/2017 9:53 PM 10/06/2017 4:42 PM Care Teams Annual Campaign Manager Relationship Specialty Start Date End Date Unknown, Notinfile PCP - General 08/01/21 Neville Rosa Jr., PERFORMANCE IMPROVEMENT CONSULTANT [address] [place] [address] Nurse Practitioner Nurse Practitioner 10/25/17 April Ramirez, PT Physical Therapist Physical Therapy 10/26/17 Edwar Madrid, OT Occupational Therapist Occupational Therapy 10/26/17 Ashlee Hand, PATIENT ACCESS Physical Therapist Physical Therapy 10/28/17 Mayco Long MD [address] [place] [address] Consulting Physician Orthopedic Surgery 11/04/17
--- OUTSIDE RECORDS SUMMARY | 2024-05-25 07:46 | XMS_ITS | Encounter Summary ---
Author Organization [facility] Address [address] [place] [address] Care Team Providers Care Ash Kier Boiler Name Role Phone Unavailable Primary Care Provider Unavailabl e Encounter Details Date Type Department Care Team (Late st Contact Info) Description 04/08/2023 Lab Requisition [facility] - DermPath Lab [address], [place] [address] Ninfa Cee MD [address] [place] [address] [place] [phone] Neoplasm of uncertain behavior of skin; Other [...] Diagnosis Comments DERMATOPATHOLOGY Routine 04/08/2023 3:33 AM LEGAL TECHNICIAN Neoplasm of uncertain behavior of skin Other disturbances of skin sensation documented in this encounter Results * DERMATOPATHOLOGY (04/08/2023 3:33 AM LEGAL TECHNICIAN) Case Report Dermatopathology Report Case: [id number] Authorizing Provider: Ninfa Cee MD Collected: 04/08/2023 03:33 AM Ordering Location: [facility] DermPath Lab Received: 04/10/2023 10:07 AM Pathologist: Jesenia Ramirez MD Specimen: Skin, left forehead 4 2:07 PM [facility] DERMATOPATHOLOGY LABORATORY Final Diagnosis Specimen A. SKIN, left forehead: MATURE ADIPOSE TISSUE CONSISTENT WITH LIPOMA (D17.0) 4 2:07 PM [facility] DERMATOPATHOLOGY LABORATORY Clinical History Lipoma 4 2:07 PM [facility] DERMATOPATHOLOGY LABORATORY Gross Description Specimen A: Received is one formalin filled container labeled with the patient's name and designated left forehead. The specimen consists of a(2) pieces of skin measuring 11x5x4, 51y10f7. The specimen is serially sectioned and a asset protection representative section is submitted in cassette 1. Jar 1. 4 2:07 PM [facility] DERMATOPATHOLOGY LABORATORY Microscopic Description Specimen A. SKIN, left forehead: There are typical adipocytes with minimal fibrous trabeculae. 4 2:07 PM [facility] DERMATOPATHOLOGY LABORATORY Disclaimer An external and internal positive and negative controls are appropriate for the histochemical, immunohistochemical and immunofluorescence stain(s) in this case (if any), except where stated explicitly. The performance characteristics of the stain(s) cited in this report were developed and its performance characteristic determined by the Dermatopathology Laboratory at [facility], directed by Dr. Eric Pelaez. These tests need not be, and therefore are not, approved by the [place] Food and Drug Administration. The tests are used for clinical purposes. Billing Codes Specimen Charges Stain Charges 36933 1 4 2:07 PM [facility] DERMATOPATHOLOGY LABORATORY Embedded Images 4 2:07 PM [facility] DERMATOPATHOLOGY LABORATORY Pathology/Cytolo gy TISSUE SPECIMEN FROM SKIN / Unknown 04/08/2023 3:33 AM LEGAL TECHNICIAN 04/10/2023 10:07 AM LEGAL TECHNICIAN Ninfa Cee MD LAB - PATHOLOGY/CYTO LOGY ORDERABLES DERMATOPATHOLOGY LABORATORY [facility] - Department of Dermatology [address], [address] [phone] documented in this encounter Visit Diagnoses Diagnosis Neoplasm of uncertain behavior of skin Other disturbances of skin sensation documented in this encounter
== END 2024-05-25 07:39 | disposition home or self-care (01) ==
PROVIDERS: PCP Family Medicine; Visit Provider Family Medicine
DX: M47.816 Spondylosis without myelopathy or radiculopathy, lumbar region (principal)
CPT/HCPCS: 72148

== ENCOUNTER 2024-08-01 09:00 | Outpatient (RCR) | payer OTHER, SELFPAY ==
--- NOTE | 2024-07-17 12:18 | OPREHPOC ---
Outpatient Therapy Plan of Care This is a Multidisciplinary Plan of Care that may contain components documented by all disciplines (PT, OT, and ST.) PT Problem 1 PT Problem #1 Knowledge Deficit PT Goal 1 Goal / Goal Update [place] with HEP Target Visit 4 PT Goal 2 Goal / Goal Update Report no pain greater than 2/10 Target Visit 8 PT Problem 2 PT Problem #2 Impaired Range of Motion PT Goal 1 Goal / Goal Update 1. Demonstrate 40 degrees of tito hip abduction to improve gross functional hip mobility 2. Demonstrate tito hamstring restriction of less than -20 to reduce posterior pelvic pull Target Visit 8 PT Problem 3 PT Problem #3 Impaired Strength PT Goal 1 Goal / Goal Update Improve tito hip flexor and abductor strength to 4+ /5 to improve pelvic stabilization Target Visit 8 PT Problem 4 PT Problem #4 Impaired Functional Mobility PT Goal 1 Goal / Goal Update Improve Oswestry score to <30% disability index Target Visit 8
--- NOTE | 2024-07-17 12:18 | PTOPEVAL1 ---
Assessment and note entered by Carlos Ramirez, PT Evaluation Information Assessment Status Evaluation Diagnosis Spinal stenosis with radiculopathy ICD-10 Condition Codes (PT) Pain in low back M54.50 Subjective Information Reports that overall she is feeling better following the injection but it did not fully relieve her issues. States that she is getting shooting pain down both legs but localized back pain is greater on left side. Denies any history of fall related to her back. Not currently taking any medications outside of Trazadone at night to help with sleeping. Pain is present in all positions. She is falling asleep with pain and cannot get fully comfortable. Currently feel like she cannot walk more than 1000 feet without increased back pain. Reported Pain Level Pain Score 3: Self Report Assessment PT Clinical Summary Patient presents with signs and symptoms consistent with spinal stenosis. She had some initial pain relief success with injection but it was not long lasting. Weakness noted in hips and core and this with be focus of therapy moving forward. Patient will benefit from skilled therapy to promote lumbar decompression, core strength, and hip strength to improve functional mobility and reduce symptoms of spinal stenosis. Plan of Care Interventions Gait Training,Manual Therapy,Neuro Re-education, Therapeutic Activities,Therapeutic Exercise PT Services Indicated Yes Treatment Frequency and 2x/week for 8 visits Duration These treatments will address the objective and functional deficits as defined above. The patient will be advanced safely and appropriately in order for the patient to progress towards his/her prior level of function. Additional exercises will be introduced and as well as a comprehensive home exercise program upon discharge, if needed, ?to ensure carryover of functional gains achieved in the clinic. This treatment plan has been reviewed and agreement upon by the patient.
--- NOTE | 2024-10-12 08:18 | PTOPDC ---
Assessment and note entered by Carlos Ramirez, PT Evaluation Information Assessment Status Discharge - Pt Not Present Diagnosis Spinal stenosis with radiculopathy ICD-10 Condition Codes (PT) Pain in low back M54.50 Subjective Information Reports that overall she is feeling better following the injection but it did not fully relieve her issues. States that she is getting shooting pain down both legs but localized back pain is greater on left side. Denies any history of fall related to her back. Not currently taking any medications outside of Trazadone at night to help with sleeping. Pain is present in all positions. She is falling asleep with pain and cannot get fully comfortable. Currently feel like she cannot walk more than 1000 feet without increased back pain. Assessment PT Clinical Summary Patient to be discharged at this time secondary to lack of attendance. Last present for therapy on . Please see last treatment note for discharge status. Plan of Care PT Services Indicated Yes
== END 2024-10-12 07:06 | disposition home or self-care (01) ==
LOC: ANHPT 09:00
PROVIDERS: PCP Family Medicine; Visit Provider Neurological Surgery
DX: M54.42 Lumbago with sciatica, left side (principal); M54.41 Lumbago with sciatica, right side; G89.29 Other chronic pain
CPT/HCPCS: 97110; 97140; 97161; 97530

== ENCOUNTER 2024-08-11 14:16 | Outpatient (CLI) | payer OTHER, SELFPAY ==
--- NOTE | ~2024-08-11 | MM_ITS ---
EXAMINATION: MM screening lisa BI w blake HISTORY: Screening TECHNIQUE: Craniocaudal and mediolateral oblique 3-D tomosynthesis images were obtained and synthetic 2-D images were generated. CAD analysis was submitted and interpreted. COMPARISON: Comparison to multiple prior studies sequentially, with oldest reviewed study dated 10/08. BREAST PARENCHYMAL COMPOSITION: Not Dense: The breasts are almost entirely fatty. FINDINGS: There is no evidence of suspicious mass, calcification, or architectural distortion to sugg est malignancy in either breast. There has been no suspicious interval change. IMPRESSION: 1. No mammographic evidence of malignancy. 2. Recommend routine screening mammography in one year. BI-RADS Category 1: Negative Reviewed, dictated and finalized at location A.
--- OUTSIDE RECORDS SUMMARY | 2024-08-11 14:20 | XMS_ITS | Encounter Summary ---
Author Organization [facility] Address [address] [address] Care Team Providers Care Music Library Assistant Name Role Phone Unavailable Primary Care Provider Unavailabl e Encounter Details Date Type Department Care Team (Late st Contact Info) Description 04/08/2023 Lab Requisition [facility] - Derm[facility] Lab [address] [place] [address] Ninfa Cee MD [address] [place] [address] [place] [phone] Neoplasm of uncertain behavior of skin; Other disturbances of skin sensation Social History Tobacco Use Types Packs/Day Years Used Date Smoking Tobacco: Never Assessed Comments Unknown Sex and Gender Information Value Date Recorded Sex Assigned at Not on file Legal Sex Female 12:53 PM 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 OPERATOR SUPERVISOR Gender Identity Not on file Sexual Orientation Not on file documented as of this encounter Plan of Treatment Not on file documented as of this encounter Procedures Procedure Name Priority Date/Time Associated Diagnosis Comments DERMATOPATHOLOGY Routine 04/08/2023 3:33 AM DREDGE OPERATOR SUPERVISOR Neoplasm of uncertain behavior of skin Other disturbances of skin sensation documented in this encounter Results * DERMATOPATHOLOGY (04/08/2023 3:33 AM DREDGE OPERATOR SUPERVISOR) Case Report Dermatopathology Report Case: [id number] Authorizing Provider: Ninfa Cee MD Collected: 04/08/2023 03:33 AM Ordering Location: [facility] DermPath Lab Received: 04/10/2023 10:07 AM Pathologist: Jesenia Ramirez MD Specimen: Skin, left forehead 4 2:07 PM DREDGE OPERATOR SUPERVISOR DERMATOPATHOLOGY LABORATORY Final Diagnosis Specimen A. SKIN, left forehead: MATURE ADIPOSE TISSUE CONSISTENT WITH LIPOMA (D17.0) 4 2:07 PM DREDGE OPERATOR SUPERVISOR DERMATOPATHOLOGY LABORATORY at 1407 DREDGE OPERATOR SUPERVISOR Clinical History Lipoma 4 2:07 PM [facility] DERMATOPATHOLOGY LABORATORY Gross Description Specimen A: Received is one formalin filled container labeled with the patient's name and designated left forehead. The specimen consists of a(2) pieces of skin measuring 11x5x4, 88g50e5. The specimen is serially sectioned and a veterans service representative section is submitted in cassette 1. Jar 1. 4 2:07 PM [facility] DERMATOPATHOLOGY LABORATORY Microscopic Description Specimen A. SKIN, left forehead: There are typical adipocytes with minimal fibrous trabeculae. 4 2:07 PM [facility] DERMATOPATHOLOGY LABORATORY Disclaimer An external and internal positive and negative controls are appropriate for the histochemical, immunohistochemical and immunofluorescence stain(s) in this case (if any), except where stated explicitly. The performance characteristics of the stain(s) cited in this report were developed and its performance characteristic determined by the Dermatopathology Laboratory at [facility], directed by Dr. Eric Pelaez. These tests need not be, and therefore are not, approved by the [place] Food and Drug Administration. The tests are used for clinical purposes. Billing Codes Specimen Charges Stain Charges 82553 1 4 2:07 PM [facility] DERMATOPATHOLOGY LABORATORY Embedded Images 4 2:07 PM [facility] DERMATOPATHOLOGY LABORATORY Pathology/Cytolo gy TISSUE SPECIMEN FROM SKIN / Unknown 04/08/2023 3:33 AM DREDGE OPERATOR SUPERVISOR 04/10/2023 10:07 AM [facility] us Ninfa Cee MD LAB - PATHOLOGY/CYTOLOGY ORDERAB LES Final Result DERMATOPATHOLOGY LABORATORY [facility] - Department of Dermatology [address] [phone] documented in this encounter Visit Diagnoses Diagnosis Neoplasm of uncertain behavior of skin Other disturbances of skin sensation documented in this encounter
--- OUTSIDE RECORDS SUMMARY | 2024-08-11 14:20 | XMS_ITS | Continuity of Care Document ---
Author Organization [facility] Address [address] [place] [address] Phone Care Team Providers Care Team Primary Care Physician Name Role Phone Mayco Long MD Unavailable Unavailable Allergies, Adverse Reactions, Alerts Substance Reaction Status Criticality No Known Allergies Active No Inform ation Medications Medication Instructions Dosage Effective Dates (start - stop) Status Comments Percocet 5 mg-325 mg tablet take 1 - 2 by oral route every 4 - 6 hours as needed 1-2 - Active [place] 7.5 mg-325 mg tablet take 1 - [...] visit,est, low [facility], [address], [place], [place], [id number], [place] tel:[phone] [facility] [place] [facility] Right humerus (chief complaint) Displaced fracture of surgical neck of right humerus, sequela 0 9 Mercedes Mao. [address] [facility] [address], [place], [place], [id number] , [place]. tel:[phone] Referring Provider: Mayco Francisco, [address] [facility] [address] [facility], [place], [address] . tel:[phone] Office/outpat ient visit,est, low [facility], [address] [address], [place], [place], [id number], [place] tel:[phone] [place] [facility] Right humerus (chief complaint) Displaced fracture of surgical neck of right humerus, sequela 8 Mercedes Mao. [address] [facility] [place] [address], [place], [place], [id number] , [place]. tel:[phone] Referring Provider: Mayco Francisco, [address] [address], [place], [address] . tel:[phone] [facility], [address], [id number], [place] tel:[phone] [facility] No Information 8 Mercedes Mao. [address] [facility] [facility] [address], [place], [place], [id number] , [place]. tel:[phone] [facility], [address] [address], [place], [place], [id number], [place] tel:[phone] [place] [facility] Right humerus (chief complaint) Displaced fracture of surgical neck of right humerus, sequela 8 Mercedes Mao. [address] [facility], [place] [address], [place], [place], [id number] , [place]. tel:[phone] [facility], [address], [id number], [place] tel:[phone] [place] [facility] Right humerus (chief complaint) Displaced fracture of surgical neck of right humerus, initial encounter for closed fracture 8 Mercedesalex Mao. [address] [facility], [place], [place], [id number] , [place]. tel:[phone] [facility], [address], [place], [place], [id number], [place] tel:[phone] [facility] Right humerus (chief complaint) Displaced fracture of surgical neck of right humerus, initial encounter for closed fracture 8 Mercedes Mao. [address], [address], [place], [place], [id number] , [place]. tel:[phone] Referring Provider: Mayco Francisco, [address] [facility] [address], [place], [address] . tel:[phone] [facility], [address], [place], [place], [id number], [place] tel:[phone] [facility] No Information 8 Mercedesalex Mao. [address], [address], [place], [place], [id number] , [place]. tel:[phone] Referring Provider: Mayco Francisco, [address] [facility] [address], [place], [address] . tel:[phone] Office/outpat ient visit,[facility], [address], [place], [place], [id number], [place] tel:[phone] [facility] Broken Shoulder (chief complaint) Displaced fracture of surgical neck of right humerus, initial encounter for closed fracture 8 Mercedesalex Mao. [address] [facility], [address], [place], [place], [id number] , [place]. tel:[phone] Referring Provider: Mayco Francisco, [address] [facility] [address], [place], [address] . tel:[phone] Family History Family Member Type Diagnosis Age At Onset Mother Problem (finding) Cancer, unknown Father Problem (finding) Heart Disease Payers Payer name Insurance type Covered republican ID Junior almaraz(s) Medicare [place] W[place] Part B [id number] [facility] [id number] Social History Type Description Quantity Date Captured [...]
--- OUTSIDE RECORDS SUMMARY | 2024-08-11 14:21 | XMS_ITS | Continuity of Care Document ---
Author Organization [employer] Address [address] [place] [address] Phone Care Team Providers Care Glass Mould Cleaner Name Role Phone Abdulkadir Chairez MD Unavailable [...] Diagnoses Date Provider Providers Copied on Encounter [facility], [address], [place], [place], [address] , tel: [phone] [facility] No Information 3 Contreras Panchal. 4689 [facility], [address], [id number], [place]. tel:[phone] [facility], [address], [place], [place], [address] , [place] tel: [phone] [facility] No Information 3 Dimitroff Abdulkadir. [facility]5 [facility], [address], [id number], [place]. tel:[phone] Referring Provider: Mateo Ibarra, [address] , [place], [address]. tel:[phone] [facility], [address], [place], [place], [address] , [place] tel: [phone] [facility] No Information 3 Dimitroff Abdulkadir. [address] [place] [address], [address], [id number], [place]. tel:[phone] Referring Provider: Lisa Church, [address] [address], [place], [address]. tel:[phone] [facility], [address], [place], [place], [address] , [place] tel: [phone] [facility] No Information 1 Pedro Gallagher. [address], [address], [place], [place], [address], [place]. tel:[phone] [facility], [address], [place], [place], [address] , tel: [phone] [facility] No Information 1 Pedro Gallagher. [address], [address], [place], [place], [address], [place]. tel:[phone] [facility], [address], [place], [place], [address] , tel: [phone] [facility] No Information 1 Dimitroff Abdulkadir. [address] [place] [address], [address], [id number], . tel:[phone] Referring Provider: Elliott Vasquez, [address], [place], [address]. tel:[phone] [facility], [address], [place], [place], [address] , [place] tel:[phone] [facility] No Information [place]- 1 Shady Patel. [address] [place], [place], [facility], [place]. tel:[phone] Referring Provider: Elliott Vasquez, [address], [place], [address]. tel:[phone] [facility], [address], [place], [place], [address] , [place] tel: [phone] [facility] Abnormal kidney function Dec- 0 Pedro Gallagher. [address], [address], [place], [place], [address], [place]. tel:[phone] [facility], [address], [place], [place], [address] , [place] tel: [phone] [facility] Abnormal kidney function Sep-2 0 Pedro Gallagher. [address], [address], [place], [place], [address], [place]. tel:[phone] [facility], [address], [place], [place], [address] , [place] tel: [phone] [facility] Reestablish care (chief complaint)Il dicare preventive (chief complaint) Body mass index (BMI) 31.0-31.9, adultEncounte r for long-term (current) use of other medicationsAd enomatous polyp of colon, unspecified part of colonMedicare annual wellness visit, subsequentPur e hypercholeste rolemiaHx of pulmonary embolusClass 1 obesity without serious comorbidity with body mass index (BMI) of 31.0 to 31.9 in adult, unspecified obesity type 0 Pedro Gallagher. [address], [address], [place], [place], [address], [place]. tel:[phone] Referring Provider: Elliott Vasquez [address], [place], [address]. tel:[phone] [facility], [address], [place], [place], [address] , tel: [phone] [facility] acute visit (chief complaint) Acute non-recurrent frontal sinusitis 8 Pedro Gallagher. [address], [place], [place], [address], . tel:[phone] Referring Provider: Elliott Vasquez, [address], [place], [address]. tel:[phone] [facility], [address], [place], [place], [address] , tel: [phone] [facility] Body mass index (BMI) 29.0-29.9, adultAdenomat ous polyp of colon, unspecified part of colonEncounte r for long-term (current) use of other medicationsSc reening for diabetes mellitusLipid screeningEnco unter for immunizationW elcome to Medicare preventive visitInfluenz a vaccine refusedSebace ous cyst 7 Pedro Gallagher. [address], [address], [place], [place], [address], . tel:[phone] Referring Provider: Elliott Vasquez, [address], [place], [address]. tel:[phone] [facility], [address], [place], [place], [address] , tel: [phone] [facility] Essential (primary) hypertension 7 Pedro Gallagher. [address], [place], [place], [address], . tel:[phone] Referring Provider: Elliott Vasquez [address], [place], [address]. tel:[phone] [facility], [address], [place], [place], [address] , tel:[phone] [facility] Essential (primary) hypertension 6 Pedro Gallagher. [address] [facility], [place], [place], [address], . tel:[phone] Referring Provider: Elliott Vasquez, [address], [place], [address]. tel:[phone] [employer], [address], [place], [place], [address] , tel:[phone] [facility] Essential (primary) hypertensionC hronic fatigueColon cancer screeningPrim julius insomniaGastr oesophageal reflux disease, esophagitis presence not specifiedBrea st cancer screeningScre ening for osteoporosis 6 Pedro Gallagher. [address], [address], [place], [place], [address], . tel:[phone] Referring Provider: Elliott Vasquez, [address], [place], [address]. tel:[phone] [employer], [address], [place], [place], [address] , tel:[phone] [facility] Chronic fatigueScreen ing for lipoid disordersEsse ntial (primary) hypertensionN on morbid obesity, unspecified obesity type 0 6 Pedro Gallagher. [address], [address], [place], [place], [address], . tel:[phone] Referring Provider: Elliott Vasquez [address], [place], [address]. tel:[phone] Family History Family Member Type Diagnosis Age At Onset Father Problem (finding) coronary arterioscleros is Mother Problem (finding) Cancer, brain Mother Problem (finding) malignant neoplasm of l steve Brother Problem (finding) Father Problem (finding) Brother Problem (finding) hypertension Father Problem (finding) premature coronary hear t disease Immunizations Vaccine Date Status Comments Pneumococcal conjugate PCV 13 administere d Source: New Immunization Record Fluzone High-Dose [id number], high dose, preservative free refused Source: New Immunization Record Influenza, injectable, quadrivalent, preservative free, 3 yrs or older refused Source: New Immuniz ation Record Td (adult) preservative free administered Note: Per pt memory.Invalid documented admin date was //2009. 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 Taking BP at home and generally [...]
--- OUTSIDE RECORDS SUMMARY | 2024-08-11 14:21 | XMS_ITS | Clinical Summary ---
Author Organization [facility] [employer] Address [address] [place] [address] Care Team Providers Care Coronary Care Unit Nurse Name Role Phone Unavailable Primary Care Provider Unavailabl e Source Comments [facility] [employer],non-owned Affiliates and Associated Physician Practices is amultiple site organization consisting of ambulatory clinics and hospital sitesin [place], [place], [place] and [place]. This disclosure is being madepursuant to the Care Everywhere program and may not contain all information available regarding this patient. 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
== END 2024-08-11 14:17 | disposition home or self-care (01) ==
LOC: ANHIMG 14:17
PROVIDERS: PCP Family Medicine; Visit Provider Family Medicine
DX: Z12.31 Encounter for screening mammogram for malignant neoplasm of breast (principal)
CPT/HCPCS: 77063; 77067